=== PATIENT | female | born 1965 | race Caucasian/White ===

== ENCOUNTER → 2016-07-01 | Outpatient (CLI) | payer MEDICARE, OTHER ==
--- NOTE | 2016-07-01 09:34 | RAD ---
Exam: PA and lateral chest radiograph History: Productive cough, headache, sore throat for one day. Comparison: None. Findings: Cardiac silhouette appears within normal limits for size. No pneumothorax or pleural effusion is seen. No focal consolidation is identified at. There appear to be bilateral reticulonodular densities. Impression: Bilateral reticulonodular densities. Findings may represent atypical pneumonia.
== END | disposition home or self-care (01) ==
LOC: DXRADRC 09:18
PROVIDERS: ATTEND Family Medicine
DX: J02.9 Acute pharyngitis, unspecified (principal)
CPT/HCPCS: 71020